=== PATIENT | female | born 1960 | race Caucasian/White ===

== ENCOUNTER 2023-03-09 10:44 | Outpatient (CLI) | payer MEDICAID | END 2023-03-09 23:59 | disposition home or self-care (01) | LOC: RAD 10:44 | PROVIDERS: ATTEND Psychiatry & Neurology Neurology | DX: R41.89 Other symptoms and signs involving cognitive functions and awareness (principal); R53.83 Other fatigue; H53.19 Other subjective visual disturbances | CPT/HCPCS: 95816 ==

== ENCOUNTER 2024-03-16 15:13 | Outpatient (CLI) | payer MEDICAID | END 2024-03-16 23:59 | disposition home or self-care (01) | LOC: RAD 15:13 | PROVIDERS: ATTEND Podiatrist | DX: L57.0 Actinic keratosis (principal); W89.8XXA Exposure to other man-made visible and ultraviolet light, initial encounter; Y93.89 Activity, other specified; Y92.89 Other specified places as the place of occurrence of the external cause; Y99.8 Other external cause status | CPT/HCPCS: 73630 ==